=== PATIENT | male | born 1975 | race Caucasian/White ===

== ENCOUNTER → 2019-04-06 | Day surgery (SDC) | payer OTHER ==
[~2019-04-06] MED LIST: ACETAMINOPHEN 325 MG TABLET PO PRN; ALBUTEROL SULFATE 2.5 MG/3 ML NEBU. NEB PRN; ATROPINE 0.5 MG/5 ML DISP.SYRIN. IV PRN; FEXO180T81 PO; FLUT9.9S NS; HYDR-2145 PO; HYOS0.1264 PO; IV RINGERS SOLUTION,LACTATED 1,000 ML IV SCH; LIDOCAINE 1% PF 30 ML VIAL. ONE; MELO15TA23 PO; METO-239 PO; OMEP20CA16 PO; ONDANSETRON PF 4 MG/2 ML VIAL. IV PRN; PHENOL ORAL SPRAY 177ML BOTTLE. MM PRN; PROPOFOL 20 ML IV ONE; PROPOFOL 40 ML IV ONE; TRAZ-120 PO; [UNRECOGNIZED DRUG - OTHER] PO; diphenhydrAMINE 50 MG/ML VIAL IV PRN
[2019-04-06 13:25] VITALS: BP 135/88
--- NOTE | 2019-04-08 16:06 | PATHOLOGY ---
[facility] Accession Number: [id number] . 01 Material submitted: . PART A: stomach - GASTRIC BX PART B: esophagus - DISTAL ESOPHAGUS BX. Modifiers: distal . 01 Clinical history: . Dyspepsia, change in bowel . 02 Diagnosis: A. Gastric biopsy: - Chronic gastritis, mild. . B. Esophageal biopsy, distal esophagus: - Segment of squamous esophageal mucosa showing no significant pathologic abnormalities. LBQ 04/08/2019 1443 Local . 02 Comment: Sections of the gastric biopsy reveal gastric antral/body transition mucosa showing congestion and very mild chronic inflammation. A properly controlled immunoperoxidase stain for Helicobacter is negative for Helicobacter organisms. . Sections of the distal esophageal biopsy reveal a segment of squamous esophageal mucosa showing no significant pathologic abnormalities. There is no evidence of Eisenberg's change, dysplasia, or malignancy. (JPM/db; 04/08/2019) . Special stain performed: Immunoperoxidase stain for Helicobacter on A1 . 02 Electronically signed: . Reggie Hawkins MD, Pathologist NPI- [id number] . 01 Gross description: . A. Received in formalin labeled "[place], gastric BX, gastritis, H. pylori," is a single segment of leon soft tissue measuring 0.5 cm in maximum dimension. The specimen is entirely submitted in cassette A1. . B. Received in formalin labeled "[place]ark, distal esophagus BX, reflux," is a single segment of leon soft tissue measuring 0.6 cm in maximum dimension. The specimen is entirely submitted in cassette B1. (TSD; 04/07/2019) TOB/TOB 04/07/2019 1822 Local . 02 Pathologist provided ICD-10: K29.50, K30, R19.4 . 02 CPT . 259712, 582803, [id number] Specimen Comment: A courtesy copy of this report has been sent to [phone], [phone] Specimen Comment: [id number] Specimen Comment: Report sent to / DR DUBON Performed at: 01 [facility] [address] [facility] [address], [place] [id number] MD Yuri Sosa MD Phone: [phone] Performed at: 02 [facility] [address] [place], [place] [id number] MD Reggie Hawkins MD Phone: [phone]
== END | disposition home or self-care (01) ==
LOC: SURG 11:07
PROVIDERS: ATTEND Emergency Medicine
DX: K92.1 Melena (principal); K64.8 Other hemorrhoids; K62.89 Other specified diseases of anus and rectum; K21.9 Gastro-esophageal reflux disease without esophagitis; K29.50 Unspecified chronic gastritis without bleeding; K31.89 Other diseases of stomach and duodenum; Z88.8 Allergy status to other drugs, medicaments and biological substances; Z79.899 Other long term (current) drug therapy
CPT/HCPCS: 43239; 45378; 88305; 88342; J2001; J2704; J7120; J3010